=== PATIENT | female | born 1940 | race Caucasian/White ===

== ENCOUNTER 2019-01-11 15:38 | Emergency (ER) | payer MEDICARE ==
[2019-01-11] MEDS ORDERED: Rabies Vaccine Human 2.5 UNITS VIAL IM ONE (16:45)
== END 2019-01-11 17:43 | disposition home or self-care (01) ==
LOC: ERS 15:38
DX: S51.851A Open bite of right forearm, initial encounter (principal); W55.01XA Bitten by cat, initial encounter; Z23 Encounter for immunization
CPT/HCPCS: 90376; 90471; 90675; 96372

== ENCOUNTER → 2019-01-14 | Day surgery (SDC) | payer MEDICARE, MEDICAID ==
[~2019-01-14] MED LIST: Rabies Vaccine Human 2.5 UNITS VIAL IM ONE
== END ==
LOC: ER/OP 10:42 → EDSTATUS 10:45
DX: Z23 Encounter for immunization (principal); Z88.1 Allergy status to other antibiotic agents
CPT/HCPCS: 90471; 90675

== ENCOUNTER 2019-01-18 09:56 | Emergency (ER) | payer MEDICARE ==
[2019-01-18] MEDS ORDERED: Rabies Vaccine Human 2.5 UNITS VIAL IM ONE (11:00)
== END 2019-01-18 11:54 | disposition home or self-care (01) ==
LOC: ER/OP 09:56 → EDSTATUS 10:00 → ER/OP 11:54
DX: Z29.14 Encounter for prophylactic rabies immune globulin (principal)
CPT/HCPCS: 90471; 90675

== ENCOUNTER → 2019-01-25 | Day surgery (SDC) | payer MEDICARE | LOC: ER/OP 10:06 | PROVIDERS: ATTEND Otolaryngology | DX: Z29.14 Encounter for prophylactic rabies immune globulin (principal); Z88.1 Allergy status to other antibiotic agents | CPT/HCPCS: 90471; 90675 ==

== ENCOUNTER 2019-08-08 19:18 | Observation (INO) | payer MEDICARE, BC ==
[2019-08-08] MEDS ORDERED: Meclizine HCl 25 MG TAB PO SCH (21:00)
[2019-08-08] MEDS ORDERED: Ondansetron ODT 4 MG TAB SL PRN (21:15)
[2019-08-08] MEDS ORDERED: Sodium Chloride 0.9% 1,000 ML IV SCH (21:15)
[2019-08-08] MEDS ORDERED: Ondansetron PF 4 MG/2 ML Vial IVP PRN ×2 (21:15→21:50)
[2019-08-08 21:17] VITALS: BMI 24.7
[2019-08-08] MEDS ORDERED: Acetaminophen 325 MG TAB PO PRN (21:50)
[2019-08-08] MEDS ORDERED: Ondansetron ODT 4 MG TAB PO PRN (21:50)
[2019-08-08] MEDS ORDERED: Acetaminophen 650 MG Suppository PR PRN (21:50)
--- NOTE | 2019-08-08 22:28 | PDOC.HHP ---
Hospitalist HPI - History of Present Illness Dizziness, n/v History of Present Illness: Patient states she was on the computer earlier today when she began to experience a mild sinus [place] which was then followed by "dizziness" which she states was not a spinning sensation but a feeling of being off balance. States she vomited twice. She tried walking and had trouble with her gait due to feeling off balance. Denies any extremity weakness or numbness. No slurred speech. No facial numbness or weakness. Patient states she was recently at a gathering with her neighbors and many of them had similar symptoms. Denies any fevers, chills or cough but has had nasal congestion. Of note she has had issues with feeling "dizzy" in the past, exacerbated by movement but states it has not been to this extent and usually resolves quickly. ED Course: She was initially seen at the ED in [place] and had CT imaging done which showed no acute changes. EKG done was unremarkable. Patient given gentle hydration. Given Meclizine and Zofran. Also given 324 mg of Aspirin. Hospitalist ROS - Review of Systems Constitutional: reports: malaise. denies: fever, chills, sweats, weakness, other Eyes: denies: pain, vision change, conjunctivae inflammation, eyelid inflammation, redness, other ENT: reports: nose congestion. denies: ear pain, ear discharge, nose pain, nose discharge, mouth pain, mouth swelling, throat pain, throat swelling, other Respiratory: denies: cough, dry, shortness of breath, hemoptysis, SOB with excertion, pleuritic pain, sputum, wheezing, other Cardiovascular: denies: chest pain, palpitations, orthopnea, paroxysmal noc. dyspnea, edema, light headedness, other Gastrointestinal: reports: nausea, vomiting. 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 - Social History Smoking Status: Never smoker Alcohol: reports: None Drugs: reports: none Living Situation: With Family Activity level: independent ambulation - Exam General Appearance: NAD, awake alert Eye: PERRL, anicteric sclera ENT: normocephalic atraumatic, no oropharyngeal lesions, moist mucosa Neck: supple, symmetric, no lymphadenopathy Heart: RRR, normal peripheral pulses Respiratory: CTAB, no wheezes, no rales, no ronchi, normal chest expansion, no tachypnea Gastrointestinal: soft, non-tender, non-distended, normal bowel sounds, no guarding, no rigidity Extremities: no cyanosis, no clubbing, no edema Skin: normal turgor, no lesions, no rashes Neurological: cranial nerve grossly intact, no weakness, no focal deficits Musculoskeletal: normal tone, normal strength, no muscle wasting Psychiatric: normal affect, normal behavior, A&O x 3 Hospitalist Results - EKG Interpretation EKG: NSR, with PACs. HR 73. - Radiology Interpretation CT scan - head Status: report reviewed by me (No acute intracranial process.) Hospitalist H&P A/P - Problem (1) Nausea & vomiting Code(s): R11.2 - NAUSEA WITH VOMITING, UNSPECIFIED Status: Acute (2) Sinus congestion Status: Acute (3) Unsteadiness on feet Code(s): R26.81 - UNSTEADINESS ON FEET Status: Acute (4) History of vertigo Code(s): Z87.898 - PERSONAL HISTORY OF OTHER SPECIFIED CONDITIONS Status: Acute (5) History of breast cancer Code(s): Z85.3 - PERSONAL HISTORY OF MALIGNANT NEOPLASM OF BREAST Status: Acute (6) Peripheral neuropathy Code(s): G62.9 - POLYNEUROPATHY, UNSPECIFIED Status: Chronic Assessment and Plan: Per discussion with Dr. Carrizales, CVA/TIA unlikely. Patient without any focal deficits. No indication for further imaging or work-up for CVA. Continue observation overnight. Gentle hydration. Continue meclizine PRN. Orthostatic BPs. Repeat labs in AM. Will obtain UA/UCx. Clear liquid diet, advance as tolerated. Code Status FULL Surrogate decision maker is her daughter Caitlin Álvarez. PCP: Dr. Zane Wilder. Case discussed with attending who advised plan as above.
[2019-08-09 03:30] LABS: Bilirubin Negative (Negative); Blood, Urine Negative (Negative); Clarity Clear (Clear); Glucose, Urine (Dipstick) Normal (Negative); Leukocyte 75 Leu/uL (Negative); Nitrite Negative (Negative); Protein, Urine (Dipstick) Negative (Neg-Trace); RBC/HPF 0-3 HPF (0-3); Squamous Epithelial None Seen HPF (0-3); Transitional Epithelial 0-3 HPF (None Seen); Urobilinogen Normal mg/dL (Less than 2)
[2019-08-09 03:32] LABS: Bacteria/HPF 1+ HPF (None Seen); Urine Culture Reflex Yes Yes
[2019-08-09] MEDS: Meclizine HCl 25 MG TAB PO SCH ×3 (05:29→20:31)
[2019-08-09 06:12] LABS: #Basophils 0.1 thou/uL (0.0-0.2); #Eosinphils 0.1 thou/uL (0.0-0.7); #Monocytes 0.6 thou/uL (0.11-0.59); #Neutrophils 3.3 thou/uL (1.40-6.50); %Basophils 1.2 % (0.0-1.0); %Eosinophils 1.5 % (0.0-10.0); %Monocytes 10.1 % (0.0-10.0); %Neutrophils 54.2 % (42.0-75.0); Hemoglobin 13.3 g/dL (12.0-16.0); Mean Corpuscular HGB CONC 33.4 g/dL (32.0-36.0); Mean Corpuscular Hemoglobin 31.2 pg (27.0-31.0); Mean Corpuscular Volume 93.5 fL (78.0-98.0); Mean Platelet Volume 8.1 fL (7.4-10.4); Platelet Count 202 thou/uL (130-400); RBC Distribution Width 11.7 % (11.5-14.5); Red Blood Cell (RBC) Count 4.27 mill/uL (4.20-5.40); White Blood Cell (WBC) Count 6.1 thou/uL (4.8-10.8)
[2019-08-09 06:38] LABS: Anion Gap 12 mmol/L (10-20); BUN (Urea Nitrogen) 14 mg/dL (9.8-20.1); Calc. Creatinine Clearance 78 mL/min (70-130); Calcium 8.9 mg/dL (7.8-10.44); Carbon Dioxide 26 mmol/L (23-31); Chloride 104 mmol/L (98-107); Estimated GFR-MDRD 87; Glucose 92 mg/dL (83-110); Potassium 3.6 mmol/L (3.5-5.1); Sodium 138 mmol/L (136-145)
[2019-08-09] MEDS: Famotidine/PF 20 mg/2ml Vial SLOW IVP SCH ×2 (09:08→20:31)
[2019-08-09] MEDS: Fluticasone Propionate Nasal Spray 16 gm Bottle NASAL SCH (09:09)
[2019-08-09] MEDS: Loratadine/Pseudoephedrine 10/240 mg Tablet PO SCH (09:09)
[2019-08-09] MEDS: Sodium Chloride 0.9% 1,000 ML IV SCH ×2 (12:11→20:27)
--- NOTE | 2019-08-09 18:56 | PDOC.HOSPP ---
- Subjective Encounter Date: 08/09/19 Encounter Time: 10:30 Subjective: pt up in bed still has some dizziness, she states that the room is spinning. - Objective Vital Signs & Weight: Vital Signs (12 hours) Temp Pulse Resp BP BP BP BP 08/09/19 16:00 98.2 F 84 20 110/67 08/09/19 11:00 98.3 F 82 16 114/65 08/09/19 10:16 111/65 100/52 L 114/65 08/09/19 08:27 103/67 08/09/19 07:27 98.5 F 82 16 97/58 L Pulse Ox 08/09/19 16:00 95 08/09/19 11:00 95 08/09/19 10:16 08/09/19 08:27 08/09/19 07:27 95 Weight Weight 153 lb 8 oz I&O: 08/08/19 08/09/19 08/10/19 06:59 06:59 06:59 Intake Total 800 Balance 800 Result Diagrams: 08/09/19 05:57 08/09/19 05:57 Hospitalist ROS - Review of Systems Cardiovascular: denies: chest pain, palpitations, orthopnea, paroxysmal noc. dyspnea, edema, light headedness, other Gastrointestinal: denies: nausea, vomiting, abdominal pain, diarrhea, constipation, melena, hematochezia, other Genitourinary: denies: dysuria, frequency, incontinence, hematuria, retention, other Musculoskeletal: denies: neck pain, shoulder pain, arm pain, back pain, hand pain, leg pain, foot pain, other Neurological: reports: other (vertigo) - Medication Medications: Active Medications Generic Name Dose Route Start Last Admin Trade Name Freq PRN Reason Stop Dose Admin Famotidine 20 mg 08/09/19 09:00 08/09/19 09:08 Pepcid SLOW IVP 20 mg Q12HR NORA Administration Fluticasone Propionate 0 gm 08/09/19 09:00 08/09/19 09:09 Flonase Nasal [place] NASAL 1 spr DAILY NORA Administration Sodium Chloride 1,000 mls @ 100 mls/hr 08/09/19 11:45 08/09/19 12:11 Normal Saline 0.9% IV 1,000 mls .Q10H NORA Administration Loratadine/Pseudoephedrine Sulfate 1 tab 08/09/19 09:00 08/09/19 09:09 Claritin-D 24 Hour PO 1 tab DAILY NORA Administration Meclizine HCl 25 mg 08/09/19 06:00 08/09/19 14:43 Antivert PO 25 mg Q8HR NORA Administration Ondansetron HCl 4 mg 08/08/19 21:50 08/09/19 09:22 Zofran IVP 4 mg Q6H PRN Administration Nausea/Vomiting - Exam Heart: negative: RRR, no murmur, no gallops, no rubs, normal peripheral pulses, irregular, diminshed peripheral pulses, murmur present, II/IV, III/IV Respiratory: negative: CTAB, no wheezes, no rales, no ronchi, normal chest expansion, no tachypnea, normal percussion, rales, rhonchi, tachypneic, wheezes Gastrointestinal: negative: soft, non-tender, non-distended, normal bowel sounds , no palpable masses, no hepatomegaly, no splenomegaly, no bruit, no guarding, no rigidity, tender to palpation, distended, diminished bowl sounds, voluntary guarding Hosp A/P (1) Dizziness Code(s): R42 - DIZZINESS AND GIDDINESS Status: Acute (2) Nausea & vomiting Code(s): R11.2 - NAUSEA WITH VOMITING, UNSPECIFIED Status: Acute - Plan pt is still nauseated and is having vertigo. ct head is negative. will start pt on meclizine tid and if her symptoms do not improve will get mri brain.
[2019-08-10] MEDS: Meclizine HCl 25 MG TAB PO SCH ×2 (05:24→13:20)
[2019-08-10] MEDS: Loratadine/Pseudoephedrine 10/240 mg Tablet PO SCH (08:36)
[2019-08-10] MEDS: Fluticasone Propionate Nasal Spray 16 gm Bottle NASAL SCH (08:36)
[2019-08-10] MEDS: Famotidine/PF 20 mg/2ml Vial SLOW IVP SCH (08:36)
[2019-08-10] MEDS ORDERED: Sodium Chloride 0.9% 500 ML IV SCH (11:45)
--- NOTE | 2019-08-10 13:09 | MRI ---
MRI BRAIN WITHOUT CONTRAST: HISTORY: Dizziness CORRELATION: CT scan from 08/08/2019. FINDINGS: No restricted diffusion is seen. There are multiple foci of T2 prolongation in the periventricular wh ite matter, consistent with mild chronic small vessel ischemic disease. The ventricular size is appropriate and the basilar cisterns are patent. No evidence of acute infarct, hemorrhage, midline shift or abnormal extra-axial fluid collections is seen. The visualized paranasal sinuses and mastoid air cells are well-aerated. IMPRESSION: No evidence of acute intracranial process.
--- NOTE | 2019-08-10 15:49 | DIS ---
DATE OF ADMISSION: 08/08/2019 DATE OF DISCHARGE: 08/10/2019 DISCHARGE DIAGNOSES: As of the followin. Vertigo. 2. History of sinus infections. 3. Seasonal allergies. HOSPITAL COURSE: The patient is a 78-year-old female, who initially presented to the hospital with vertigo. She initially had a CT brain, which was then negative. She had mild orthostatics that were positive. She was given some IV hydration and also her medications were reconciled. I have advised her not to take any pseudoephedrine medications since that can also cause vertigo and dizziness. The patient was put on meclizine. Her dizziness improved, however, she still continued to have an unsteady gait. At this time, I did check the patient's vitamin B12 and folic acid, which were normal. She also had a UA, which did not show any growth. I did make her an appointment with Dr. Egan on Tuesday at 0230 hours and I have notified her about that. She did complain of some right ear pain at times and also some sinus issues in the past. However, currently, she did not have any overt signs of infectious processes, so no antibiotics were started. I will give her some medications for her right ear until she sees ENT over on the weekend. HOME MEDICATIONS: Will be as of the following. She will be discharged on meclizine 25 mg every 8 hours and acetate acid 2% otic solution. Also, she was evaluated by Physical Therapy and recommended rehab or home with home PT. I did ask the patient if she wanted me to give her physical therapy. However, the patient stated that she will talk with her primary care. I advised her to stay with her daughter since the patient is still kind of unsteady. I will ask her if she wants to go to inpatient rehab for some balancing, which would help her with her gait. PHYSICAL EXAMINATION: VITAL SIGNS: Temperature of 98.8, pulse 77, respiratory rate 18, oxygen saturation 95% on room air, and blood pressure is 125/75. GENERAL: She is awake, alert, and oriented x3. Does not appear in distress. CARDIOVASCULAR: S1 and S2 present. No murmurs, rubs, or gallops. ABDOMEN: Soft and nontender. Bowel sounds are present x2. Again, she will be discharged home. She will follow up with her primary. Job ID: [id number]
--- NOTE | 2019-08-10 16:03 | PDOC.EVN ---
Event Note - Event Note Event Note: recommended for inpatient rehab and pt refused. she states that she will stay with her daughter for the next few days. she has no more vertigo but is unsteady when she ambulates.
[2019-08-10 16:49] VITALS: BP 114/67; TEMP 97.4
== END 2019-08-10 17:14 | disposition home or self-care (01) ==
LOC: T4-A 19:18
PROVIDERS: ADMIT Family Medicine; ATTEND Internal Medicine
DX: R42 Dizziness and giddiness (principal); R11.2 Nausea with vomiting, unspecified; J30.2 Other seasonal allergic rhinitis; G62.9 Polyneuropathy, unspecified; Z79.51 Long term (current) use of inhaled steroids; Z79.899 Other long term (current) drug therapy; Z85.3 Personal history of malignant neoplasm of breast; Z88.1 Allergy status to other antibiotic agents
CPT/HCPCS: 70551; 80048; 81001; 82607; 82746; 85025; 87086; 96361; 96374; 96375; 96376 ×2; 97116 ×2; 97139 ×2; G0378 ×3; 36415; J2405; J8597; S0028